=== PATIENT | male | born 1950 | race Hispanic/Latino ===

== ENCOUNTER 2018-07-23 21:36 | Emergency (ER) | payer OTHER ==
[2018-07-23] MEDS ORDERED: AMOX/K CLAV 875 MG TAB ONE (23:02)
[2018-07-23] MEDS ORDERED: TETANUS & DIPHTHERIA TOX,ADULT 0.5 ML VIAL ONE (23:02)
--- NOTE | 2018-07-23 23:05 | ER ---
Nurse's Notes [facility] Name: Ronda Chang Age: 68 yrs Sex: Male : 1950 Arrival Date: 07/23/2018 Time: 21:40 Bed 24 Private MD: Diagnosis: Bitten by rat;Abrasion of left hand;Laceration without foreign body of right hand Presentation: 07/23 21:49 Presenting complaint: Patient states: I got bit twice a rat, once on each hand. la1 Transition of care: patient was not received from another setting of care. Onset of symptoms was July 23, 2018. Risk Assessment: Do you want to hurt yourself or someone else? Patient reports no desire to harm self or others. Initial Sepsis Screen: Does the patient meet any 2 criteria? No. Patient's initial sepsis screen is negative. Does the patient have a suspected source of infection? No. Patient's initial sepsis screen is negative. Care prior to arrival: None. 21:49 Method Of Arrival: Ambulatory la1 21:49 Acuity: ARIELLA 4 la1 Triage Assessment: 22:40 General: Appears in no apparent distress. comfortable, Behavior is calm, cooperative, rr5 appropriate for age. Historical: - Allergies: 21:50 No Known Allergies; la1 - PMHx: 21:50 Hypertension; la1 - Immunization history:: Adult Immunizations up to date. - Social history:: Smoking status: Patient uses tobacco products, smokes one-half pack cigarettes per day. - Ebola Screening: : No symptoms or risks identified at this time. Screenin:40 Abuse screen: Denies threats or abuse. Denies injuries from another. Nutritional rr5 screening: No deficits noted. Tuberculosis screening: No symptoms or risk factors identified. Fall Risk None identified. Total Son Fall Scale indicates No Risk (0-24 pts). Assessment: 22:40 General: Appears in no apparent distress. comfortable, Behavior is calm, cooperative, rr5 appropriate for age, Smells of alcohol. Pain: Denies pain. Neuro: Level of Consciousness is awake, alert, obeys commands, Oriented to person, place, time, situation, Appropriate for age. Cardiovascular: Capillary refill < 3 seconds Patient's skin is warm and dry. Respiratory: Airway is patent Respiratory effort is even, unlabored, Respiratory pattern is regular, symmetrical. 22:40 GI: No signs and/or symptoms were reported involving the gastrointestinal system. : rr5 No signs and/or symptoms were reported regarding the genitourinary system. EENT: No signs and/or symptoms were reported regarding the EENT system. Derm: Wound noted right and left dorsum of the hand Wound is puncture wound. Musculoskeletal: Capillary refill < 3 seconds, Range of motion: intact in all extremities. 23:15 Reassessment: Patient appears in no apparent distress at this time. wound cleaning done.rr5 23:30 Reassessment: Patient appears in no apparent distress at this time. Patient is alert, rr5 oriented x 3, equal unlabored respirations, skin warm/dry/pink. discharge instruction given and explained without complaints made. Vital Signs: 21:50 BP 111 / 64; Pulse 76; Resp 16; Temp 97.8; Pulse Ox 98% on R/A; Weight 63.5 kg; Height la1 5 ft. 5 in. (165.10 cm); 23:05 BP 125 / 65; Pulse 75; Resp 17; Pulse Ox 99% ; rr5 23:30 BP 121 / 62; Pulse 72; Resp 18; Pulse Ox 98% on R/A; rr5 21:50 Body Mass Index 23.30 (63.50 kg, 165.10 cm) la1 ED Course: 21:40 Patient arrived in ED. mr 21:50 Triage completed. la1 21:50 Arm band placed on left wrist. la1 22:24 Adam Jenkins NP is PHCP. pm1 22:24 Alistair Emmanuel MD is Attending Physician. pm1 22:40 Lázaro Martin RN is Primary Nurse. rr5 22:40 Allergy band placed. Bed in low position. Call light in reach. rr5 22:47 Hand Right 3 View XRAY In Process Unspecified. EDMS 23:30 No provider procedures requiring assistance completed. Patient did not have IV access rr5 during this emergency room visit. Administered Medications: 23:04 Drug: Tetanus-Diphtheria Toxoid Adult 0.5 ml {Abstract Maker: [employer]. Exp: rr5 12/14/2020. Lot #: [id number]. } Route: IM; Site: right deltoid; 23:30 Follow up: Response: No adverse reaction; Medication administered at discharge. rr5 23:05 Drug: Augmentin 875 mg Route: PO; rr5 23:30 Follow up: Response: No adverse reaction; Medication administered at discharge. rr5 Outcome: 23:05 Discharge ordered by . pm1 23:30 Discharged to home ambulatory, with family. rr5 23:30 Condition: stable 23:30 Discharge instructions given to patient, family, Instructed on discharge instructions, follow up and referral plans. medication usage, Demonstrated understanding of instructions, follow-up care, medications, Prescriptions given X 1. 23:34 Patient left the ED. rr5 Signatures: Dispatcher [employer] GIGIIN Shaggy Samantha AmayaJesus RN RN la1 Adam Jenkins, GM SENIOR GAME ADVISOR pm1 Lázaro Martin RN RN rr5 Corrections: (The following items were deleted from the chart) 21:50 21:49 Acuity: ARIELLA 5 la1 la1
--- NOTE | 2018-07-23 23:05 | EDPHYS ---
Physician Documentation [facility] Name: Ronda Chang Age: 68 yrs Sex: Male : 1950 Arrival Date: 07/23/2018 Time: 21:40 Bed 24 Private MD: ED Physician Alistair Emmanuel HPI: 07/23 22:31 This 68 yrs old Male presents to ER via Ambulatory with complaints of Rat bite.pm1 22:31 Onset: The symptoms/episode began/occurred today. Associated signs and symptoms: pm1 Pertinent negatives: fever, discharge. Modifying factors: The patient symptoms are alleviated by nothing, the patient symptoms are aggravated by nothing. The patient has not experienced similar symptoms in the past. The patient has not recently seen a physician. Patient grabbed a rat that was running along his kitchen counter by the tail and it bit him on the right hand and then scratched him on the left hand. Historical: - Allergies: 21:50 No Known Allergies; la1 - PMHx: 21:50 Hypertension; la1 - Immunization history:: Adult Immunizations up to date. - Social history:: Smoking status: Patient uses tobacco products, smokes one-half pack cigarettes per day. - Ebola Screening: : No symptoms or risks identified at this time. ROS: 22:31 Constitutional: Negative for fever, chills, and weight loss, Eyes: Negative for injury, pm1 pain, redness, and discharge, ENT: Negative for injury, pain, and discharge, Neck: Negative for injury, pain, and swelling, Cardiovascular: Negative for chest pain, palpitations, and edema, Respiratory: Negative for shortness of breath, cough, wheezing, and pleuritic chest pain, Abdomen/GI: Negative for abdominal pain, nausea, vomiting, diarrhea, and constipation, Back: Negative for injury and pain, : Negative for injury, bleeding, discharge, and swelling, MS/Extremity: Negative for injury and deformity. 22:31 Skin: Positive for bite to right hand and abrasion to left hand. 22:31 Neuro: Negative for numbness, tingling. Exam: 22:35 Constitutional: This is a well developed, well nourished patient who is awake, alert, pm1 and in no acute distress. Head/Face: Normocephalic, atraumatic. Eyes: Pupils equal round and reactive to light, extra-ocular motions intact. Lids and lashes normal. Conjunctiva and sclera are non-icteric and not injected. Cornea within normal limits. Periorbital areas with no swelling, redness, or edema. ENT: Nares patent. No nasal discharge, no septal abnormalities noted. Tympanic membranes are normal and external auditory canals are clear. Oropharynx with no redness, swelling, or masses, exudates, or evidence of obstruction, uvula midline. Mucous membranes moist. Neck: Trachea midline, no thyromegaly or masses palpated, and no cervical lymphadenopathy. Supple, full range of motion without nuchal rigidity, or vertebral point tenderness. No Meningismus. Chest/axilla: Normal chest wall appearance and motion. Nontender with no deformity. No lesions are appreciated. Cardiovascular: Regular rate and rhythm with a normal S1 and S2. No gallops, murmurs, or rubs. Normal PMI, no JVD. No pulse deficits. Respiratory: Lungs have equal breath sounds bilaterally, clear to auscultation and percussion. No rales, rhonchi or wheezes noted. No increased work of breathing, no retractions or nasal flaring. Abdomen/GI: Soft, non-tender, with normal bowel sounds. No distension or tympany. No guarding or rebound. No evidence of tenderness throughout. Back: No spinal tenderness. No costovertebral tenderness. Full range of motion. 22:35 Skin: Appearance: normal except for affected area, injury, abrasion(s), of the lateral aspect of left hand, bite(s), superficial, of the dorsum of right hand. 22:35 Neuro: Orientation: is normal, Motor: is normal, moves all fours, strength is normal, strength is 5/5 in all extremities, Sensation: is normal, no obvious gross deficits, Gait: is steady, at a normal pace, without difficulty. Vital Signs: 21:50 BP 111 / 64; Pulse 76; Resp 16; Temp 97.8; Pulse Ox 98% on R/A; Weight 63.5 kg; Height la1 5 ft. 5 in. (165.10 cm); 23:05 BP 125 / 65; Pulse 75; Resp 17; Pulse Ox 99% ; rr5 23:30 BP 121 / 62; Pulse 72; Resp 18; Pulse Ox 98% on R/A; rr5 21:50 Body Mass Index 23.30 (63.50 kg, 165.10 cm) la1 MDM: 22:24 Patient medically screened. jaron 22:38 Data reviewed: vital signs. Data interpreted: Pulse oximetry: on room air is 98 %. pm1 Interpretation: normal. 23:03 ED course: Right hand X-ray: No fracture. No foreign body. pm1 23:03 Counseling: I had a detailed discussion with the patient and/or guardian regarding: the pm1 historical points, exam findings, and any diagnostic results supporting the discharge/admit diagnosis, radiology results, the need for outpatient follow up, to return to the emergency department if symptoms worsen or persist or if there are any questions or concerns that arise at home. 07/23 22:31 Order name: Hand Right 3 View XRAY; Complete Time: 23:09 pm1 Administered Medications: 23:04 Drug: Tetanus-Diphtheria Toxoid Adult 0.5 ml {[employer]: [employer]. Exp: rr5 12/14/2020. Lot #: [id number]. } Route: IM; Site: right deltoid; 23:30 Follow up: Response: No adverse reaction; Medication administered at discharge. rr5 23:05 Drug: Augmentin 875 mg Route: PO; rr5 23:30 Follow up: Response: No adverse reaction; Medication administered at discharge. rr5 Disposition: 07/23/18 23:05 Discharged to Home. Impression: Bitten by rat, Abrasion of left hand, Laceration without foreign body of right hand. - Condition is Stable. - Discharge Instructions: Abrasion, Laceration Care, Adult, Animal Bite. - Prescriptions for Augmentin 875- 125 mg Oral Tablet - take 1 tablet by ORAL route every 12 hours for 10 days; 20 tablet. - Medication Reconciliation Form, Thank You Letter, Antibiotic Education, Prescription Opioid Use form. - Follow up: Emergency Department; When: As needed; Reason: Worsening of condition. Follow up: Private Physician; When: 2 - 3 days; Reason: Recheck today's complaints, Continuance of care, Re-evaluation by your physician. - Problem is new. - Symptoms have improved. Addendum: 07/25/2018 11:16 Co-signature as Attending Physician, Alistair Emmanuel MD I agree with the assessment and c au plan of care. Signatures: Dispatcher [employer] EDMS Alistair Emmanuel MD MD cha Attema, Lee, RN RN la1 Adam Jenkins NP PROGRAMMER ANALYST pm1 Lázaro Martin RN RN rr5 Corrections: (The following items were deleted from the chart) 07/23 23:34 23:05 07/23/2018 23:05 Discharged to Home. Impression: Bitten by rat; Abrasion of left rr5 hand; Laceration without foreign body of right hand. Condition is Stable. Forms are Medication Reconciliation Form, Thank You Letter, Antibiotic Education, Prescription Opioid Use. Follow up: Emergency Department; When: As needed; Reason: Worsening of condition. Follow up: Private Physician; When: 2 - 3 days; Reason: Recheck today's complaints, Continuance of care, Re-evaluation by your physician. Problem is new. Symptoms have improved. pm1
--- NOTE | 2018-07-23 23:08 | RAD REPORT ---
EXAM DESCRIPTION: RAD - Hand Right 3 View - 07/23/2018 10:46 pm CLINICAL HISTORY: ANIMAL BITE Pain and swelling COMPARISON: No comparisons FINDINGS: No fracture, dislocation or radiopaque foreign body.
== END 2018-07-23 23:34 | disposition home or self-care (01) ==
LOC: ER 21:36
DX: S61.411A Laceration without foreign body of right hand, initial encounter (principal); S60.512A Abrasion of left hand, initial encounter; W53.11XA Bitten by rat, initial encounter; Y93.89 Activity, other specified; Y92.9 Unspecified place or not applicable; Z23 Encounter for immunization; F17.210 Nicotine dependence, cigarettes, uncomplicated
CPT/HCPCS: 90714

== ENCOUNTER 2018-09-11 10:38 | Day surgery (SDC) | payer OTHER ==
[2018-09-11] MEDS: PHENYLEPHRINE 10% OPTH 5ML ONE ×5 (11:03→12:12)
[2018-09-11] MEDS: CYCLOPENTOLATE 1% OPTH 2 ML ONE ×3 (11:03→11:13)
[2018-09-11] MEDS ORDERED: TETRACAINE HCL 0.5% 4ML OPTH ONE (11:04)
[2018-09-11] MEDS ORDERED: NA CHLORIDE 0.9% 500 ML ONE (11:04)
[2018-09-11] MEDS ORDERED: LIDOCAINE HCL/PF 3.5% OPTH GEL ONE (11:04)
[2018-09-11] MEDS ORDERED: LIDOCAINE 2% MPF 5 ML VIAL ONE (11:04)
[2018-09-11] MEDS ORDERED: BUPIVACAINE 0.25% PF 10 ML VIAL ONE (11:04)
[2018-09-11] MEDS ORDERED: NS 0.9% VIAL 10 ML ONE (11:44)
[2018-09-11] MEDS ORDERED: DUOVISC 1 KIT OPTH ONE (11:44)
[2018-09-11] MEDS ORDERED: BALANCED SALT IRRIG PLAIN 500 ML BTL IRR ONE (11:44)
[2018-09-11] MEDS ORDERED: EPINEPHRINE/PF 1 MG/ML AMP ONE (11:44)
[2018-09-11] MEDS ORDERED: LIDOCAINE 1% MPF 2 ML AMPULE ONE (11:45)
[2018-09-11] MEDS ORDERED: MOXIFLOXACIN HCL 10 DROPS/ML **OR USE OPTH ONE (11:45)
[2018-09-11] MEDS ORDERED: FENTANYL CITR 100 MCG/2 ML ONE (12:09)
[2018-09-11] MEDS ORDERED: MIDAZOLAM HCL 2 MG/2 ML INJ ONE (12:09)
--- NOTE | 2018-09-11 12:58 | P.BOP ---
Preoperative diagnosis: Nuclear sclerotic cataract OS Postoperative diagnosis: Same Primary procedure: Phacoemulsification with IOL OS Estimated blood loss: None Anesthesia: Local (Topical with anesthesia for cataract surgery) Complications: None Implants: ZCB00 +19.0 Transferred to: Other (Day surgery) Condition: Good
--- NOTE | 2018-09-11 22:44 | OP ---
Date of Procedure: 09/11/2018 Surgeon: Ursula Garner MD Anesthesiologist: Arvind Hess CRNA and Osmany Lawrence MD. Preoperative Diagnosis: Nuclear sclerotic cataract, left eye. Operation Performed: Phacoemulsification with intraocular lens implant, left eye. Anesthesia: Per cataract surgery. Complications: None. Description Of Procedure: In the operating room the patient was prepped and draped in the usual sterile fashion for ophthalmic surgery. A lid speculum was placed in the left eye. Two paracentesis sites were made superiorly and inferiorly in the limbal cornea. Viscoat was placed in the anterior chamber and a crescent blade was used to make a corneal groove and tunnel, and a keratome was used to enter the anterior chamber. Provisc was placed in the anterior chamber and a 360 degree capsulotomy was performed with a cystitome. The lens was hydrodissected with BSS and rotated freely. The lens was removed with a stop and chop technique. 20.88 phaco CDE was used to remove the lens. Residual cortex was removed with the irrigation and aspiration. Provisc was placed in the capsular bag. A ZCB00 +19.0 lens was placed in the capsular bag without complications. Irrigation and aspiration were used to remove residual viscoelastic. The paracentesis sites were hydrated with BSS. The wound and paracentesis sites were inspected and found to be watertight. Vigamox 0.07 cc was placed intracamerally at the end of the procedure. The eye was irrigated with balanced salt solution. The eye was patched with a soft cotton patch and Mayers metal shield. The patient was returned to day surgery in good condition. Comments: Akten was placed in the eye in Day Surgery and irrigated out of the eye with BSS in the OR. Preservative free 1% lidocaine was placed in the anterior chamber prior to Viscoat. Discharge Instructions: Mr. Chang is discharged to home in good condition and is to follow up with Dr. Garner in the morning. CRUZ/MUNIRA Voice ID: [id number] Report ID: [id number] MTDD
== END 2018-09-11 13:25 | disposition home or self-care (01) ==
LOC: OR 10:38
PROVIDERS: ATTEND Ophthalmology Retina Specialist
PROC: 08RK3JZ Replacement of Left Lens with Synthetic Substitute, Percutaneous Approach (ICD-10-PCS; principal; 2018-09-11 11:00)
DX: H25.12 Age-related nuclear cataract, left eye (principal); I10 Essential (primary) hypertension; F17.210 Nicotine dependence, cigarettes, uncomplicated; Z79.82 Long term (current) use of aspirin; Z79.899 Other long term (current) drug therapy
CPT/HCPCS: 66984; J0171; J2250; J3010; J2001

== ENCOUNTER 2018-11-06 07:07 | Day surgery (SDC) | payer OTHER ==
[2018-11-06] MEDS ORDERED: BALANCED SALT IRRIG PLAIN 500 ML BTL IRR ONE (07:56)
[2018-11-06] MEDS ORDERED: NS 0.9% VIAL 10 ML ONE (07:56)
[2018-11-06] MEDS ORDERED: EPINEPHRINE/PF 1 MG/ML AMP ONE (07:56)
[2018-11-06] MEDS ORDERED: LIDOCAINE 1% MPF 2 ML AMPULE ONE (07:56)
[2018-11-06] MEDS ORDERED: DUOVISC 1 KIT OPTH ONE (07:56)
[2018-11-06] MEDS ORDERED: LIDOCAINE 2% MPF 5 ML VIAL ONE (08:07)
[2018-11-06] MEDS ORDERED: TETRACAINE HCL 0.5% 4ML OPTH ONE (08:08)
[2018-11-06] MEDS ORDERED: NA CHLORIDE 0.9% 500 ML ONE (08:08)
[2018-11-06] MEDS ORDERED: LIDOCAINE HCL/PF 3.5% OPTH GEL ONE (08:08)
[2018-11-06] MEDS ORDERED: BUPIVACAINE 0.25% PF 10 ML VIAL ONE (08:08)
[2018-11-06] MEDS: PHENYLEPHRINE 10% OPTH 5ML ONE ×3 (08:25→08:35)
[2018-11-06] MEDS: KETOROLAC OPTHALMIC 5 ML BOT ONE ×3 (08:25→08:35)
[2018-11-06] MEDS: Gatifloxacin Ophth 0.5% (2.5 ML BTL) OPTH ONE ×3 (08:25→08:35)
[2018-11-06] MEDS: MOXIFLOXACIN HCL 10 DROPS/ML **OR USE OPTH ONE ×3 (08:25→09:31)
[2018-11-06] MEDS: CYCLOPENTOLATE 1% OPTH 2 ML ONE ×2 (08:25→08:30)
[2018-11-06] MEDS ORDERED: MIDAZOLAM HCL 2 MG/2 ML INJ ONE (08:37)
--- NOTE | 2018-11-06 09:47 | P.BOP ---
Preoperative diagnosis: Nuclear sclerotic cataract OD Postoperative diagnosis: Same Primary procedure: Phacoemulsification with IOL OD Estimated blood loss: None Anesthesia: Local (Topical with anesthesia for cataract surgery) Complications: None Implants: ZCB00 +18.5 Transferred to: Other (Day surgery) Condition: Good
--- NOTE | 2018-11-06 20:00 | OP ---
Date of Procedure: 11/06/2018 Surgeon: Ursula Garner MD Anesthesiologist: Arvind Barajas CRNA; Arvind Hess CRNA; and Osmany Lawrence MD. Diagnosis: Nuclear sclerotic cataract, right eye. Procedure: Phacoemulsification with intraocular lens, right eye. Anesthesia: Per cataract surgery. Complications: None. Description Of Procedure: In the operating room the patient was prepped and draped in the usual ster ile fashion for ophthalmic surgery. A lid speculum was placed in the right eye. Two paracentesis si sam were made superiorly and inferiorly in the limbal cornea. Viscoat was placed in the anterior jaron mber and a crescent blade was used to make a corneal groove and tunnel, and a keratome was used to en ter the anterior chamber. Provisc was placed in the anterior chamber and a 360 degree capsulotomy wa s performed with a cystitome. The lens was hydrodissected with BSS and rotated freely. The lens was removed with a stop and chop technique. A 10.43 phaco CDE was used to remove the lens. Residual co rtex was removed with the irrigation and aspiration. Provisc was placed in the capsular bag. A ZCB0 0 +18.5 lens was placed in the capsular bag without complications. Irrigation and aspiration was use d to remove residual viscoelastic. The paracentesis sites were hydrated with BSS. The wound and par acentesis sites were inspected and found to be watertight. Vigamox 0.07 cc was placed intracamerally at the end of the procedure. The eye was irrigated with balanced salt solution. The eye was patche d with a soft cotton patch and Mayers metal shield. The patient was returned to day surgery in good condition. Comments: Akten was placed in the eye in day surgery and irrigated out of the eye with BSS in the OR . Preservative-free 1% lidocaine was placed in the anterior chamber prior to Viscoat. Discharge Instructions: Mr. Chang is discharged to home in good condition and is to follow up with Allyson Garner in the morning. CRUZ/MUNIRA Voice ID: [id number] Report ID: [id number]
== END 2018-11-06 10:16 | disposition home or self-care (01) ==
LOC: OR 07:07
PROVIDERS: ATTEND Ophthalmology Retina Specialist
PROC: 08RJ3JZ Replacement of Right Lens with Synthetic Substitute, Percutaneous Approach (ICD-10-PCS; principal; 2018-11-06 09:00)
DX: H25.11 Age-related nuclear cataract, right eye (principal); I10 Essential (primary) hypertension; F17.200 Nicotine dependence, unspecified, uncomplicated; Z79.82 Long term (current) use of aspirin; Z83.3 Family history of diabetes mellitus
CPT/HCPCS: 66984; J0171; J2250; J2001